=== PATIENT | male | born 1935 | race Caucasian/White ===

== ENCOUNTER 2016-05-24 09:28 | Day surgery (SDC) | payer OTHER, MEDICARE ==
[~2016-05-24] VITALS: Ht 175.3 cm; Wt 98.0 kg
[~2016-05-24 09:28] MED LIST: ALBUTEROL SULF8.5 GM IH; AMLODIPINE BESY10 MG PO; AMLODIPINE BESYL5 MG PO; ASPIR-LOW81 MG PO; ASPIRIN E.C.81 M1 PO; ASPIRIN81 M1 PO; BENAZEPRIL HCT PO; CELEXA40 MG PO; CITALOPRAM HBR40 MG PO; COQ-10100 MG PO; COREG12.5 M1 PO; FINASTERIDE5 M1 PO; FISH OIL PO; FLOMAX0.4 MG PO; IMDUR30 MG PO; LOPRESSOR25 MG PO; LOSARTAN POTASS25 MG PO; LOVASTATIN40 MG PO; MEDROL DOSEPAK4 MG PO; OMEGA-31000 M1 PO; OXYCODONE-ACET1 EACH PO; OXYCODONE5 MG PO; Omega III EPA + DHA PO; PRAVACHOL40 MG PO; PRESERVISION; PRESERVISION T1 EACH PO; PROSCAR5 MG PO; PROTONIX40 MG PO; VENTOLIN HFA18 GM IH; VITAMIN D2000 INTUN PO; VITAMIN D2000 UNIT PO; XALATAN2.5 ML RIGHT EYE; ZITHROMAX Z-PA250 MG PO
== END 2016-05-24 12:50 | disposition home or self-care (01) ==
LOC: PAIN 09:28 → SDC 10:15 → PAIN 10:15
PROC: 3E0U33Z Introduction of Anti-inflammatory into Joints, Percutaneous Approach (ICD-10-PCS; principal; 2016-05-24)
DX: M46.1 Sacroiliitis, not elsewhere classified (principal); M48.06 Spinal stenosis, lumbar region; M47.896 Other spondylosis, lumbar region; M54.5 Low back pain; R73.03 Prediabetes; E11.9 Type 2 diabetes mellitus without complications; E78.5 Hyperlipidemia, unspecified; J45.909 Unspecified asthma, uncomplicated
CPT/HCPCS: J1030; J2250; J3010; S0020

== ENCOUNTER 2016-05-26 12:58 | Emergency (ER) | payer OTHER, MEDICARE ==
[~2016-05-26] VITALS: Ht 175.3 cm; Wt 97.3 kg
[2016-05-26 14:05] LABS: HEMATOCRIT 43.2 % (38.0-50.0); MCH 28.9 PG (29.0-34.0); MCHC 32.6 G/DL (30.0-36.0); MCV 88.5 FL (86-99); MEAN PLAT.VOLUME 9.3 uM^3 (9.0-12.4); PLATELET COUNT 250 K/uL (156-360); RBC DIS.WIDTH-CV 14.1 % (11.8-14.6); RBC DIS.WIDTH-SD 45.2 % (39-53); RED BLOOD COUNT 4.88 M/uL (4.00-5.50); WHITE BLOOD COUNT 7.3 K/uL (4.1-10.2)
[2016-05-26 14:14] LABS: ADD MIUA? YES; BILIRUBIN NEGATIVE; BLOOD NEGATIVE; COLOR YELLOW ((YELLOW)); GLUCOSE (STRIP) NEGATIVE; KETONES NEGATIVE; LEUKOCYTES NEGATIVE; NITRITE NEGATIVE; PROTEIN (STRIP) >=500; SPECIFIC GRAVITY 1.019 (1.000-1.030); UROBILINOGEN 0.2 MG/DL (0.2-1.0)
[2016-05-26 14:16] LABS: CHLORIDE 106 mEq/L (99-109); POTASSIUM 4.3 mEq/L (3.7-5.4); SODIUM 141 mEq/L (136-147)
[2016-05-26 14:18] LABS: GLUCOSE 98 mg/dL (70-99)
[2016-05-26 14:19] LABS: ANION GAP 10 MEQ/L (2-14)
[2016-05-26 14:21] LABS: BACTERIA RARE /HPF; EPITHELIAL CELLS RARE /HPF; MUCUS TRACE /LPF; RED BLOOD CELLS NONE SEEN /HPF (0-5); WHITE BLOOD CELLS 0-5 /HPF (0-5)
[2016-05-26 14:21] LABS: GFR ESTIMATE (CALCULATED) 34 mL/min/
[2016-05-26 14:22] LABS: UREA NITROGEN (BUN) 26 mg/dL (9-23)
[2016-05-26 14:28] LABS: TROP-I INTERPRETATION NEGATIVE; TROPONIN-I < 0.01 ng/mL (0.0-0.30)
[2016-05-26 14:55] LABS: INFLUENZA A VIRAL ANTIGEN NEGATIVE; INFLUENZA B VIRAL ANTIGEN NEGATIVE
[2016-05-26 18:02] VITALS: BP 166/86
== END 2016-05-26 18:03 | disposition home or self-care (01) ==
LOC: EME 12:58
PROVIDERS: Physician Assistant
DX: R53.1 Weakness (principal); I10 Essential (primary) hypertension; I25.2 Old myocardial infarction
CPT/HCPCS: 70450; 71020; 80048; 81003; 84484; 85027; 87502; 93005; 99281; 99285; J7030; J7040